=== PATIENT | male | born 1960 | race Caucasian/White ===

== ENCOUNTER 2021-08-02 07:25 | Emergency (ER) | payer OTHER ==
--- NOTE | 2021-08-02 07:43 | ED Physician Documentation ---
PD HPI CHEST PAIN - Stated complaint Stated Complaint: FAST HR - Chief complaint Chief Complaint: Cardiac - History obtained from History obtained from: Patient - History of Present Illness Timing - onset: How many hours ago (1) Timing - onset during: Rest Timing - duration: Minutes (20) Timing - details: Abrupt onset, Now resolved Quality: Tightness Location: Substernal (feeling of heart racing fast. Onset at rest. Resolved enroute here. He did take BP and HR at home several times and BP 112-120 systolic. HR was 169-178 over the time period of 20 minutes.) Improved by: No: Rest Associated symptoms: Feeling faint / dizzy, Palpitations. No: Shortness of air, Nausea Similar symptoms before: No diagnosis (one other episode 2 days ago lasted 10 minutes then resolved without particular intervention.) Recently seen: Not recently seen Review of Systems Constitutional: denies: Fever Nose: denies: Congestion Cardiac: reports: Palpitations. denies: Chest pain / pressure, Pedal edema, Calf pain Respiratory: denies: Cough, Wheezing GI: denies: Abdominal Pain Musculoskeletal: denies: Neck pain, Back pain Neurologic: reports: Generalized weakness (during the symptoms). denies: Sync ope, Altered mental status Psychiatric: denies: Insomnia Endocrine: denies: Weight loss PD PAST MEDICAL HISTORY - Present Medications Home Medications: Ambulatory Orders Medication Instructions Recorded Confirmed Metoprolol Succinate [Toprol Xl] 25 mg PO DAILY 30 Days #30 tablet 08/02/21 - Allergies Allergies/Adverse Reactions: Allergies Allergy/AdvReac Type Severity Reaction Status Date / Time No Known Drug Allergies Allergy Verified 08/02/21 07:35 Results - Vitals Vitals: Oxygen O2 Source Room air - EKG (time done) on arrival Rhythm: NSR [place]: Normal Intervals: Normal CO QRS: Normal Ischemia: Normal ST segments Compare to prior EKG: Old EKG unavailable - Labs Labs: Laboratory Tests 08/02/21 08/02/21 08/02/21 08:10 08:10 08:10 WBC 6.5 RBC 5.24 Hgb 17.1 Hct 49.4 MCV 94.3 H MCH 32.6 H MCHC 34.6 RDW 14.0 Plt Count 224 MPV 10.6 Neut # (Auto) 4.4 Lymph # (Auto) 1.4 L [place] # (Auto) 0.5 Eos # (Auto) 0.1 Baso # (Auto) 0.1 Absolute Nucleated RBC 0.00 Nucleated RBC % 0.0 Sodium 141 Potassium 3.7 Chloride 107 Carbon Dioxide 26 Anion Gap 8.0 BUN 17 Creatinine 1.0 Estimated GFR (MDRD) 76 L Glucose 106 H Calcium 8.7 Magnesium 2.4 Total Bilirubin 0.7 AST 23 ALT 41 Alkaline Phosphatase 54 Total Protein 6.9 Albumin 4.1 Globulin 2.8 Albumin/Globulin Ratio 1.5 Lipase 77 H TSH 1.82 PD MEDICAL DECISION MAKING - ED course Complexity details: considered differential (He has rapid HR episodes. [place] some lightheaded but not too bad, so unlikely V-tach. HR variable at 169-178 rate on 4 readings, so seems most likely atrial fib rather than SVT. Will need Zio/Holter monitoring. Consider low dose betablocker pending workup. ), d/w patient Departure - Departure Disposition: Home, Self Care Clinical Impression: Tachycardia Condition: Stable Record reviewed to determine appropriate education?: Yes Instructions: ED Valsalva Maneuver Prescriptions: Metoprolol Succinate [Toprol Xl] 25 mg PO DAILY 30 Days #30 tablet Comments: Your EKG and basic blood tests are normal here. It is hard to tell the type of abnormal rhythm you had. Considerations would be paroxysmal atrial fibrillation which sounds more likely given the rate of it that you recorded. Other possi bility would be SVT. The treatment for this would be based on the rhythm for sure. Initially we can use a low-dose metoprolol beta-mino and that would help suppress the episodes for either. However longer-term management would be based on knowing better the rhythm that it was. As such, and work-up would be to wear a monitor for a week or so the record your rhythm and see if an episode occurs. That would be set up through your primary care. For now, start metoprolol 25 mg daily and decrease your Losartan from 100 to 50 mg (half tablet). Other medicines the same. Contact your primary care on Tuesday or regarding these episodes with the suggestion from the ER of getting a Holter or Zio patch type monitor. When you do have the monitor in place, they may want you to hold the metoprolol to allow an episode to occur more easily. Return to the ER if you have a persistent inconsistent episode meanwhile. [facility] pharmacy. Discharge Date/Time: 08/02/21 10:09
[2021-08-02 08:15] LABS: BASOPHILS # (AUTO) 0.1 10^3/uL (0.0-0.1); BASOPHILS % (AUTO) 1.2 %; EOSINOPHILS # (AUTO) 0.1 10^3/uL (0.0-0.7); EOSINOPHILS % (AUTO) 1.5 %; HCT - HEMATOCRIT 49.4 % (42.0-52.0); HGB - HEMOGLOBIN 17.1 g/dL (14.0-18.0); LYMPHOCYTES # (AUTO) 1.4 10^3/uL (1.5-3.5); MEAN CORPUSCULAR HEMOGLOBIN 32.6 pg (27.0-31.0); MEAN CORPUSCULAR HGB CONC 34.6 g/dL (32.0-36.0); MEAN CORPUSCULAR VOLUME 94.3 fL (80.0-94.0); MEAN PLATELET VOLUME 10.6 fL (7.4-11.4); MONOCYTES # (AUTO) 0.5 10^3/uL (0.0-1.0); MONOCYTES % (AUTO) 6.9 %; NEUTROPHILS # (AUTO) 4.4 10^3/uL (1.5-6.6); NEUTROPHILS % (AUTO) 68.2 %; PLT - PLATELET COUNT 224 10^3/uL (130-450); RED BLOOD COUNT 5.24 10^6/uL (4.70-6.10); WHITE BLOOD COUNT 6.5 x10^3/uL (4.8-10.8)
[2021-08-02 08:28] LABS: ALBUMIN 4.1 g/dL (3.2-5.5); ALBUMIN/GLOBULIN RATIO 1.5 (1.0-2.2); BILIRUBIN,TOTAL 0.7 mg/dL (0.2-1.0); CALCIUM 8.7 mg/dL (8.5-10.3); MAGNESIUM 2.4 mg/dL (1.7-2.8); POTASSIUM 3.7 mmol/L (3.5-5.0); TOTAL PROTEIN 6.9 g/dL (6.7-8.2)
[2021-08-02] MEDS ORDERED: METOPROLOL SUCCINATE 25 MG TABLET PO STA (09:18)
[2021-08-02 09:36] VITALS: BP 153/118
== END 2021-08-02 10:09 | disposition home or self-care (01) ==
LOC: ED 07:25
DX: R00.0 Tachycardia, unspecified (principal)
CPT/HCPCS: 36415; 80053; 83690; 83735; 84443; 85025; 93005; 99284; A9270

== ENCOUNTER 2023-12-06 20:35 | Emergency (ER) | payer OTHER ==
--- NOTE | 2023-12-06 20:43 | ED Physician Documentation ---
History of Present Illness - Stated complaint Stated Complaint: HIGH BP - Chief complaint Chief Complaint: Cardiac - History obtained from History obtained from: Patient - Additonal information Additional information: HPI from patient. Patient c/o high blood pressure readings on home cuff. Readings today have been 160s/80s-90s with pulse 100-110. He says his normal blood pressures are 140s-150s/70s-90s. He was recently diagnosed with COVID and RSV by his PCP in [place], started on prednisone taper (beginning with 60mg QD for few days then taper), also prescribed albuterol MDI and benzonatate. He denies chest pain, dyspnea. Occasional [employer] cough. He says he contacted an advice hotline and was advised to go to ED for evaluation. Review of Systems Constitutional: denies: Fever, Chills, Sweats Cardiac: reports: Reviewed and negative Respiratory: reports: Reviewed and negative Neurologic: denies: Focal weakness, Numbness, Headache PD PAST MEDICAL HISTORY - Past Medical History Past Medical History: Yes Cardiovascular: Hypertension - Past Surgical History Past Surgical History: No - Present Medications Home Medications: Ambulatory Orders Medication Instructions Recorded Confirmed Metoprolol Succinate [Toprol Xl] 25 mg PO DAILY 30 Days #30 tablet 08/02/21 12/06/23 - Allergies Allergies/Adverse Reactions: Allergies Allergy/AdvReac Type Severity Reaction Status Date / Time No Known Drug Allergies Allergy Verified 12/06/23 21:33 - Social History Does the pt smoke?: No Smoking Status: Never smoker Does the pt drink ETOH?: No Does the pt have substance abuse?: No - Immunizations Immunizations are current?: Yes PD ED PE NORMAL - Vitals Vital signs reviewed: Yes - General General: Alert and oriented X 3, No acute distress, Well developed/nourished - Cardiac Cardiac: RRR, No murmur - Respiratory Respiratory: No respiratory distress, Clear bilaterally - Neuro Neuro: Alert and oriented X 3 Results - Vitals Vitals: Oxygen O2 Source Room air PD Medical Decision Making - ED course Complexity details: reviewed results, re-evaluated patient, considered dif ferential, d/w patient ED course: Presents with asymptomatic high blood pressure readings which are only mildly elevated (150/100 in ED, with 160s SBP at home on multiple readings today) and slightly higher than patient's normal blood pressures (per patient, as noted in HPI). Recent introduction of prednisone is possible cause for these elevations over his baseline but at this time these readings are not high enough to warrant emergent testing/treatment (also considering lack of symptoms that would correlate with high blood pressures). However, we discussed option of one-time dose of metoprolol 25mg to effect mild reduction in heart rate and blood pressure and he agrees with this plan. No rx provided. I advised him to skip the 60mg prednisone days and go straight to the 40mg dosing starting tomorrow (particularly considering lungs are clear and questionable benefit of prednisone in setting of RSV, COVID). Return precautions reviewed. Departure - Departure Disposition: Home, Self Care Clinical Impression: Hypertension Qualifiers: Hypertension type: unspecified Qualified Code(s): I10 - Essential (primary) hypertension Condition: Good Instructions: ED Hypertension Conf Out Of Control Comments: Although your blood pressures are higher than the normal/acceptable range, there is a very likely explanation with the steroids (prednisone) that you recently initiated. Additionally, the blood pressure results you are getting at home, as well as the emergency department, are not high enough to warrant immediate concern nor change in your medication regimen. The only exception, as we discussed, is that I recommend skipping straight to the 40 mg dose of prednisone with your next dose (tomorrow) and finish the rest of the prescribed taper of prednisone as per the label instructions. In other words, you have taken a the first dose of the 60 mg prednisone; the instructions say to take a few more days of 60 mg prednisone: I am recommending that you skip the rest of the 60 mg prednisone days and go straight to the 40 mg dosing starting tomorrow. If your blood pressures and pulse rates do not gradually come down in proportion to the lower doses of prednisone, consider following up with your PCP to reevaluate your high blood pressures. Forms: PCP List Discharge Date/Time: 12/06/23 21:25
[2023-12-06 20:50] VITALS: BP 150/100; O2SAT 96
== END 2023-12-06 21:25 | disposition home or self-care (01) ==
LOC: ED 20:35
DX: I10 Essential (primary) hypertension (principal)
CPT/HCPCS: 99281; 99283